=== PATIENT | female | born 1955 | race Caucasian/White ===

== ENCOUNTER 2023-05-08 19:35 | Emergency (ER) | payer OTHER, MEDICAID ==
[~2023-05-08] VITALS: Ht 154.9 cm; Wt 52.3 kg
[~2023-05-08 19:35] MED LIST: ASPI-1265 PO; CARV3.1289 PO; FERGLU300T PO; LISI5TAB22 PO; NO HOME MEDS
[2023-05-08] MEDS ORDERED: LIDOcaine 1% W/epiNEPHrine 1:100,000 20ml vial SQ ONE (22:20)
[2023-05-08] MEDS ORDERED: morphine 4 MG/ML inj SYRINge IM ONE (22:55)
--- NOTE | 2023-05-08 23:54 | NUR ---
ASSUMED CARE FROM YIFAN JEFFERSON.
--- NOTE | 2023-05-09 00:46 | NUR ---
DR ELLIS AT BEDSIDE WITH TOXICOLOGY TEACHER SUKHI ROOT SPLINTING
[2023-05-09] MEDS ORDERED: morphine 4 MG/ML inj SYRINge IV ONE (00:55)
[2023-05-09] MEDS ORDERED: HYDR-3973 PO (01:22)
--- NOTE | 2023-05-09 01:33 | NUR ---
ANA LUISA GONZALES ON [address] TO [employer] PT. 20 MIN ETA.
[2023-05-09 02:20] VITALS: BP 152/89
== END 2023-05-09 02:23 | disposition home or self-care (01) ==
LOC: ER 19:35
DX: S52.502A Unspecified fracture of the lower end of left radius, initial encounter for closed fracture (principal); S63.075A Dislocation of distal end of left ulna, initial encounter; I13.0 Hypertensive heart and chronic kidney disease with heart failure and stage 1 through stage 4 chronic kidney disease, or unspecified chronic kidney disease; I50.9 Heart failure, unspecified; N18.9 Chronic kidney disease, unspecified; F12.90 Cannabis use, unspecified, uncomplicated; W19.XXXA Unspecified fall, initial encounter; Y93.89 Activity, other specified; Y92.89 Other specified places as the place of occurrence of the external cause; Y99.8 Other external cause status
CPT/HCPCS: 25605; 73100; 73110; 96372; 96374; 99284; J2270; A4565; A6449

== ENCOUNTER 2024-04-10 15:57 | Inpatient (IN) | payer MEDICARE, MEDICAID ==
[~2024-04-10] VITALS: Ht 154.9 cm; Wt 52.3 kg
[2024-04-10] MEDS ORDERED: LISI20TA28 PO (16:39)
[2024-04-10] MEDS ORDERED: DOXA2TAB92 PO (16:39)
[2024-04-10] MEDS ORDERED: CARV6.2553 PO (16:39)
[2024-04-10 16:42] LABS: BASOPHILS % (AUTO) 0.2 % (0-1); EOSINOPHILS % (AUTO) 0.1 % (0-6); HEMATOCRIT 40.9 % (35.0-45.0); HEMOGLOBIN 13.5 g/dl (12.0-16.0); LYMPHOCYTES # (AUTO) 1.4 X10'3 (1.1-4.8); LYMPHOCYTES % (AUTO) 10.3 % (21-51); MEAN CORPUSCULAR HEMOGLOBIN 30.2 PG (27.0-31.0); MEAN CORPUSCULAR VOLUME 91.4 FL (78-98); MEAN PLATELET VOLUME 9.4 FL (7.4-10.4); MONOCYTES # (AUTO) 0.9 X10'3 (0-0.9); MONOCYTES % (AUTO) 6.3 % (2-12); NEUTROPHILS # (AUTO) 11.7 X10'3 (1.8-7.7); NEUTROPHILS % (AUTO) 83.1 % (42-75); PLATELET COUNT 200 X10'3 (140-440); RED BLOOD COUNT 4.47 X10'6 (4.20-5.60); RED CELL DISTRIBUTION WIDTH 14.3 % (11.5-14.5)
[2024-04-10 16:57] LABS: ALANINE AMINOTRANSFERASE 124 U/L (12-78); ALBUMIN 3.2 G/DL (3.4-5.0); ALBUMIN/GLOBULIN RATIO 0.9 (1.1-1.5); ALKALINE PHOSPHATASE 122 IU/L (46-116); ANION GAP 8 (8-16); ASPARTATE AMINO TRANSFERASE 67 U/L (10-37); BILIRUBIN,TOTAL 0.8 MG/DL (0.1-1.0); BLOOD UREA NITROGEN 23 MG/DL (7-18); BUN/CREATININE RATIO 16.3 (10.0-20.0); CALCIUM 9.9 MG/DL (8.5-10.1); CHLORIDE 105 MMOL/L (99-107); CREATININE 1.41 MG/DL (0.40-0.90); GLUCOSE 143 MG/DL (70-104); POTASSIUM 4.3 MMOL/L (3.5-5.1); SODIUM 137 MMOL/L (135-145); TOTAL PROTEIN 6.9 G/DL (6.4-8.2); eCRCL 30 ML/MIN; eGFR 37 ML/MIN
[2024-04-10 17:03] LABS: PRO BRAIN NATRIURETIC PEPTIDE 26824 PG/ML (0-125)
[2024-04-10] MEDS: furosemide 10 MG/1 ML 10ml inj IV ONE (17:21)
[2024-04-10] MEDS ORDERED: magnesium 2GM in 50ml NS 50 ML IV PRN (17:30)
[2024-04-10] MEDS ORDERED: magnesium Cl slow-release 64mg tablet PO PRN (17:30)
[2024-04-10] MEDS ORDERED: potassium Cl 20 mEq SR tablet PO PRN ×2 (17:30)
[2024-04-10] MEDS ORDERED: magnesium 4gm in 100ml NS 100 ML IV PRN (17:30)
[2024-04-10] MEDS ORDERED: potassium Cl 40MEQ/1/2NS 520ml 520 ML IV PRN (17:30)
[2024-04-10] MEDS ORDERED: ondansetron/PF 4mg/2ml inj IV PRN (17:30)
[2024-04-10] MEDS ORDERED: acetaminophen 325mg tablet PO PRN (17:30)
[2024-04-10 19:02] LABS: URINE AMPHETAMINE SCREEN POSITIVE (Neg); URINE BARBITUATE SCREEN NEGATIVE (Neg); URINE BENZODIAZEPINES SCREEN NEGATIVE (Neg); URINE CANNABINOID SCREEN NEGATIVE (Neg); URINE COCAINE SCREEN NEGATIVE (Neg); URINE METHADONE SCREEN NEGATIVE (Neg); URINE OPIATE SCREEN NEGATIVE (Neg); URINE PHENCYCLIDINE SCREEN NEGATIVE (Neg)
[2024-04-10] MEDS ORDERED: furosemide 10 MG/1 ML 10ml inj IV SCH (20:00)
[2024-04-10] MEDS: furosemide 10 MG/1 ML 10ml inj IV SCH (20:00)
[2024-04-10] MEDS: CefTRIAXone 2gm/D5W 50ml BAG 50 ML IV ONE (20:22)
[2024-04-10] MEDS: heparin, porcine 5000 units/ml vial SQ SCH (20:22)
[2024-04-10] MEDS: carvedilol 6.25mg tablet PO SCH (20:22)
[2024-04-10 21:30] VITALS: BP 158/92; PULSE 83; RESP 19; TEMP 98.6; O2SAT 94
[2024-04-10] MEDS: acetaminophen 325mg tablet PO SCH (23:23)
[2024-04-11] VITALS (7 sets, daily range): BP systolic 125–170; BP diastolic 60–100; PULSE 64–97; RESP 14–24; TEMP 97.2–98.4; O2SAT 91–99
[2024-04-11 06:31] LABS: BASOPHILS % (AUTO) 0.2 % (0-1); EOSINOPHILS % (AUTO) 0.2 % (0-6); HEMATOCRIT 38.5 % (35.0-45.0); HEMOGLOBIN 12.7 g/dl (12.0-16.0); LYMPHOCYTES # (AUTO) 1.3 X10'3 (1.1-4.8); LYMPHOCYTES % (AUTO) 11.2 % (21-51); MEAN CORPUSCULAR HEMOGLOBIN 30.2 PG (27.0-31.0); MEAN CORPUSCULAR VOLUME 91.5 FL (78-98); MEAN PLATELET VOLUME 9.1 FL (7.4-10.4); MONOCYTES % (AUTO) 9.1 % (2-12); NEUTROPHILS # (AUTO) 8.9 X10'3 (1.8-7.7); NEUTROPHILS % (AUTO) 79.3 % (42-75); PLATELET COUNT 172 X10'3 (140-440); RED BLOOD COUNT 4.21 X10'6 (4.20-5.60); RED CELL DISTRIBUTION WIDTH 14.1 % (11.5-14.5); WHITE BLOOD COUNT 11.2 X10'3 (4.5-11.0)
[2024-04-11 06:53] LABS: ALANINE AMINOTRANSFERASE 90 U/L (12-78); ALBUMIN 2.8 G/DL (3.4-5.0); ALBUMIN/GLOBULIN RATIO 0.8 (1.1-1.5); ALKALINE PHOSPHATASE 104 IU/L (46-116); ANION GAP 7 (8-16); ASPARTATE AMINO TRANSFERASE 39 U/L (10-37); BILIRUBIN,TOTAL 0.8 MG/DL (0.1-1.0); BLOOD UREA NITROGEN 21 MG/DL (7-18); BUN/CREATININE RATIO 15.4 (10.0-20.0); CALCIUM 9.4 MG/DL (8.5-10.1); CHLORIDE 106 MMOL/L (99-107); CREATININE 1.36 MG/DL (0.40-0.90); GLUCOSE 105 MG/DL (70-104); POTASSIUM 3.9 MMOL/L (3.5-5.1); SODIUM 138 MMOL/L (135-145); TOTAL CARBON DIOXIDE 24.6 MMOL/L (24-32); TOTAL PROTEIN 6.3 G/DL (6.4-8.2); eCRCL 31 ML/MIN; eGFR 39 ML/MIN
[2024-04-11] MEDS: ferrous gluconate 324mg tablet PO SCH (07:48)
[2024-04-11] MEDS: lisinopril 20mg tablet PO SCH (07:48)
[2024-04-11] MEDS: pantoprazole 40mg Tablet.DR PO SCH (14:00)
[2024-04-12 02:00] VITALS: BP 135/79; PULSE 64; RESP 18; TEMP 97.9; O2SAT 98
[2024-04-12 06:30] VITALS: BP 119/82; PULSE 66; RESP 14; TEMP 97.7; O2SAT 96
[2024-04-12 07:08] LABS: BASOPHILS # (AUTO) 0.1 X10'3 (0-0.2); BASOPHILS % (AUTO) 0.8 % (0-1); EOSINOPHILS # (AUTO) 0.1 X10'3 (0-0.9); EOSINOPHILS % (AUTO) 1.1 % (0-6); HEMATOCRIT 38.7 % (35.0-45.0); HEMOGLOBIN 13.1 g/dl (12.0-16.0); LYMPHOCYTES # (AUTO) 2.1 X10'3 (1.1-4.8); LYMPHOCYTES % (AUTO) 31.9 % (21-51); MEAN CORPUSCULAR HEMOGLOBIN 30.5 PG (27.0-31.0); MEAN CORPUSCULAR HGB CONC 33.8 g/dL (33.0-36.5); MEAN CORPUSCULAR VOLUME 90.3 FL (78-98); MEAN PLATELET VOLUME 9.2 FL (7.4-10.4); MONOCYTES # (AUTO) 0.7 X10'3 (0-0.9); NEUTROPHILS # (AUTO) 3.8 X10'3 (1.8-7.7); NEUTROPHILS % (AUTO) 56.2 % (42-75); PLATELET COUNT 187 X10'3 (140-440); RED BLOOD COUNT 4.28 X10'6 (4.20-5.60); RED CELL DISTRIBUTION WIDTH 14.2 % (11.5-14.5); WHITE BLOOD COUNT 6.7 X10'3 (4.5-11.0)
[2024-04-12 07:28] LABS: ALANINE AMINOTRANSFERASE 63 U/L (12-78); ALBUMIN 2.6 G/DL (3.4-5.0); ALBUMIN/GLOBULIN RATIO 0.7 (1.1-1.5); ALKALINE PHOSPHATASE 96 IU/L (46-116); ANION GAP 9 (8-16); ASPARTATE AMINO TRANSFERASE 30 U/L (10-37); BILIRUBIN,TOTAL 0.5 MG/DL (0.1-1.0); BLOOD UREA NITROGEN 26 MG/DL (7-18); BUN/CREATININE RATIO 19.5 (10.0-20.0); CALCIUM 9.2 MG/DL (8.5-10.1); CHLORIDE 104 MMOL/L (99-107); CREATININE 1.33 MG/DL (0.40-0.90); GLUCOSE 93 MG/DL (70-104); POTASSIUM 3.8 MMOL/L (3.5-5.1); SODIUM 139 MMOL/L (135-145); TOTAL CARBON DIOXIDE 26.3 MMOL/L (24-32); TOTAL PROTEIN 6.4 G/DL (6.4-8.2); eCRCL 31 ML/MIN; eGFR 40 ML/MIN
[2024-04-12 08:00] VITALS: RESP 16; O2SAT 98
[2024-04-12 08:22] VITALS: BP_SYST 119; PULSE 66
[2024-04-12] MEDS ORDERED: POTA-206 PO (10:19)
[2024-04-12] MEDS ORDERED: FURO20TA4 PO (10:19)
== END 2024-04-12 12:05 | disposition home or self-care (01) | DRG 280 ==
LOC: ER 15:58 → ED HOLD 17:33 → EDBEDREQ 19:51 → PCU 3S 20:30
PROVIDERS: ADMIT Internal Medicine; ATTEND Internal Medicine
DX: I13.0 Hypertensive heart and chronic kidney disease with heart failure and stage 1 through stage 4 chronic kidney disease, or unspecified chronic kidney disease (principal); I50.23 Acute on chronic systolic (congestive) heart failure; I21.A1 Myocardial infarction type 2; N18.30 Chronic kidney disease, stage 3 unspecified; R74.01 Elevation of levels of liver transaminase levels; F10.90 Alcohol use, unspecified, uncomplicated; F15.90 Other stimulant use, unspecified, uncomplicated; I25.10 Atherosclerotic heart disease of native coronary artery without angina pectoris; I25.2 Old myocardial infarction; Z79.899 Other long term (current) drug therapy
CPT/HCPCS: 36415; 71045; 80053; 80305; 83880; 84145; 84484; 85025; 85651; 87081; 93005; 93306; 96374; 99291; G0378; J0696; J1644; J1940

== ENCOUNTER 2025-05-16 16:37 | Outpatient (CLI) | payer MEDICARE, MEDICAID ==
[~2025-05-16 16:37] MED LIST changes: +APIX2.5T PO; +ASPI-1071 PO; -ASPI-1265 PO; -CARV3.1289 PO; +CARV6.253 PO; +DAPA10TA PO; +DOXA2TAB92 PO; +FURO20TA4 PO; -NO HOME MEDS
--- NOTE | 2025-05-17 18:17 | CARDIOLOGY REPORT ---
APPROVED REPORT EXAM: Comprehensive 2D, Doppler, and color-flow Echocardiogram. Patient Location: OUT-PATIENT Blood Pressure: 153/119 mmHg Heart Rate: 76 bpm Indications Evaluate Prosthetic Heart Valve Coronary Artery Disease Congestive Heart Failure Atrial Fibrillation Hypertension Shortness of Breath JEWEL STRIPPER: Marielena Kevin MD Previous ECHO: 10/27/24, [facility], SS, EF: 40; modLAE; sm. PFO; m-modMR/TR 2D Dimensions LA Diam5.1 cm IVSd 0.9 (0.7-1.1cm) LVDd 5.3 cm PWd 0.9 (0.7-1.1cm) IVSs 0.8 (0.8-1.2cm) LVDs 4.5 (2.5-4.0cm) PWs 1.1 (0.8-1.2cm) LVEF(%) 33.7 (>50%) IVC 16.27 mmFS (%) 16.2 % SV 46.6 ml M-Mode Dimensions Aortic Root 2.53 (2.2-3.7cm) Aortic Valve AoV Peak Sorin. 163.9 cm/s AoV VTI 25.0 cm AO Peak GR. 10.7 mmHg AO Mean GR. 6 mmHg LVOT VTI 14.40 cm LVOT Peak Sorin. 102.9 cm/s Mitral Valve MV E Velocity 90.4 cm/s MV DECEL TIME 177 ms MV A Velocity 41.1 cm/s E/A Ratio 2.2 Pulmonary Valve PV Peak Velocity 66.8 cm/s PV Peak Grad. 2 mmHg Tricuspid Valve TR P. Velocity 263 cm/s RAP ESTIMATE 10 mmHg TR Peak Gr. 28 mmHg RVSP 38 mmHg LEFT VENTRICLE Normal LV size and wall thickness. Overall systolic function is severely decreased. Myocardial appear ance of hyper-echoic speckle / mottled tissue in ventricule septum (present in previous echo). Mid an teroseptal wall appears akinetic. Severe LV systolic dysfunction present. Overall estimated ejection fraction is about 30%. RIGHT VENTRICLE Right ventricle appears mildly dilated with decreased contractility. Estimated PA systolic pressure o f 38 mm of mercury. ATRIA Left atrium is severely dilated. Small PFO with left to right shunt noted by spectral and color flow Doppler (present in previous echo). AORTIC VALVE Bioprosthetic TAVR appears well seated with normal function. Peak / mean gradients of 11 / 6 mmHG. Pe ak velocity is measured at 1.64 m/sec. No insufficiency. MITRAL VALVE Mild mitral annular calcification without stenosis. Mild regurgitation. TRICUSPID VALVE The tricuspid valve is normal in structure with mild regurgitation. PULMONIC VALVE The pulmonary valve is normal in structure with physiologic insufficiency. GREAT VESSELS The aortic root is normal in size. Ascending aorta is dilated (4.1 cm). IVC is normal in size and col lapses less than 50% with inspiration. PERICARDIUM Normal pericardium. No effusion. Left Pleural effusion present. Conclusion Severe LV systolic dysfunction present. Overall estimated ejection fraction is about 30%. Normal LV size and wall thickness. Overall systolic function is severely decreased. Myocardial appear ance of hyper-echoic speckle / mottled tissue in ventricule septum (present in previous echo). Mid anteroseptal wall appears akinetic. Right ventricle appears mildly dilated with decreased contractility. Estimated PA systolic pressure of 38 mm of mercury. Small PFO with left to right shunt noted by spectral and color flow Doppler (present in previous ech o). Bioprosthetic TAVR appears well seated with normal function. Peak / mean gradients of 11 / 6 mmHG. P eak velocity is measured at 1.64 m/sec. No insufficiency. Mild mitral annular calcification without stenosis. Mild regurgitation. The tricuspid valve is normal in structure with mild regurgitation. The pulmonary valve is normal in structure with physiologic insufficiency. Normal pericardium. No effusion. Left Pleural effusion present.
== END 2025-05-16 23:59 | disposition home or self-care (01) ==
LOC: CARD DIAG 16:37
PROVIDERS: ATTEND Internal Medicine Cardiovascular Disease
DX: I08.8 Other rheumatic multiple valve diseases (principal); Z95.2 Presence of prosthetic heart valve
CPT/HCPCS: 93306